=== PATIENT | male | born 1950 | race Caucasian/White ===

== ENCOUNTER 2020-04-08 09:55 | Emergency (ER) | payer MEDICARE ==
[2020-04-08] MEDS ORDERED: EXCEDRIN EXTRA1 EACH PO (10:22)
[2020-04-08 10:55] LABS: BASO # 0.1 10*3/uL (0.0-0.1); BASO % 0.6 % (0.0-1.0); EOS # 0.3 10*3/uL (0.0-0.4); HEMATOCRIT 57.4 % (42.0-52.0); LYMPH # 1.8 10*3/uL (1.3-4.4); LYMPH % 12.7 % (27.0-41.0); MEAN CELL VOLUME 93.3 fl (80.0-94.0); MEAN CORPUSCULAR HGB 29.9 pg (27.0-31.0); MEAN CORPUSCULAR HGB CONC 32.1 g/dl (33.0-37.0); MEAN PLATELET VOLUME 10.4 fl (9.6-12.3); MONO % 6.7 % (3.0-9.0); NEUT # 11.1 10*3/uL (2.3-7.9); NEUT % 77.6 % (47.0-73.0); PLATELET COUNT AUTOMATED 255 10*3/uL (130-400); RED BLOOD COUNT 6.15 10*6/uL (4.50-5.90); RED CELL DISTRI WIDTH 13.6 % (0-14.5); WHITE BLOOD COUNT 14.4 10*3/uL (4.8-10.8)
[2020-04-08 11:07] LABS: ALBUMIN 4.2 gm/dl (3.1-4.5); CREATININE 1.54 mg/dL (0.70-1.30); POTASSIUM 4.5 mmol/L (3.5-5.1); TOTAL PROTEIN 7.7 gm/dL (6.4-8.2)
== END 2020-04-08 11:30 | disposition home or self-care (01) ==
LOC: ED 09:55
PROVIDERS: Student in an Organized Health Care Education/Training Program
DX: R25.2 Cramp and spasm (principal); I73.9 Peripheral vascular disease, unspecified; M79.605 Pain in left leg; F17.200 Nicotine dependence, unspecified, uncomplicated; Z79.82 Long term (current) use of aspirin

== ENCOUNTER → 2022-05-07 | Outpatient (CLI) | payer MEDICARE ==
[~2022-05-07] MED LIST: AMLODIPINE BESY10 MG PO; AMLODIPINE BESYL5 MG PO; ASPIRIN CHEWABL81 MG PO; CARVEDILOL6.25 MG PO; EXCEDRIN EXTRA1 EACH PO; VITAMIN D350 MC2 PO
== END | disposition home or self-care (01) ==
LOC: RAD 10:05
PROVIDERS: ATTEND Internal Medicine
DX: K56.41 Fecal impaction (principal); R14.0 Abdominal distension (gaseous)

== ENCOUNTER → 2022-09-04 | Outpatient (CLI) | payer MEDICARE | END | disposition home or self-care (01) | LOC: RESCLI 03:21 | PROVIDERS: ATTEND Internal Medicine | DX: K59.00 Constipation, unspecified (principal); R14.0 Abdominal distension (gaseous); E78.5 Hyperlipidemia, unspecified; E55.9 Vitamin D deficiency, unspecified; I10 Essential (primary) hypertension; R06.02 Shortness of breath; Z87.891 Personal history of nicotine dependence; Z98.890 Other specified postprocedural states; Z79.82 Long term (current) use of aspirin; Z79.899 Other long term (current) drug therapy ==

== ENCOUNTER 2022-09-23 08:20 | Emergency (ER) | payer MEDICARE ==
[~2022-09-23] VITALS: Ht 165.1 cm; Wt 63.5 kg
[2022-09-23] MEDS ORDERED: PROVENTIL HFA6.7 GM INH (08:35)
[2022-09-23] MEDS ORDERED: ATORVASTATIN CA20 M1 PO (08:35)
[2022-09-23] MEDS ORDERED: PANTOPRAZOLE SO40 MG PO (08:36)
[2022-09-23] MEDS ORDERED: LISINOPRIL10 M1 PO (08:36)
[2022-09-23 08:52] LABS: BASO # 0.1 10*3/uL (0.0-0.1); BASO % 0.7 % (0.0-1.0); EOS # 0.5 10*3/uL (0.0-0.4); HEMATOCRIT 44.6 % (42.0-52.0); LYMPH # 1.4 10*3/uL (1.3-4.4); LYMPH % 11.4 % (27.0-41.0); MEAN CELL VOLUME 93.1 fl (80.0-94.0); MEAN CORPUSCULAR HGB 30.7 pg (27.0-31.0); MONO # 0.9 10*3/uL (0.1-1.0); MONO % 7.1 % (3.0-9.0); NEUT # 9.3 10*3/uL (2.3-7.9); NEUT % 76.5 % (47.0-73.0); PLATELET COUNT AUTOMATED 236 10*3/uL (130-400); RED BLOOD COUNT 4.79 10*6/uL (4.50-5.90); RED CELL DISTRI WIDTH 12.9 % (0-14.5); WHITE BLOOD COUNT 12.2 10*3/uL (4.8-10.8)
[2022-09-23 09:14] LABS: POTASSIUM 4.5 mmol/L (3.4-5.1); TOTAL PROTEIN 7.6 gm/dL (6.0-8.0)
[2022-09-23] MEDS ORDERED: PREDNISONE20 M1 PO (09:35)
[2022-09-23] MEDS ORDERED: ZITHROMAX250 MG PO (09:35)
== END 2022-09-23 09:43 | disposition home or self-care (01) ==
LOC: ED 08:20
PROVIDERS: Emergency Medicine
DX: J45.901 Unspecified asthma with (acute) exacerbation (principal); R07.89 Other chest pain; M54.9 Dorsalgia, unspecified; Z79.82 Long term (current) use of aspirin; Z79.899 Other long term (current) drug therapy

== ENCOUNTER → 2022-10-03 | Day surgery (SDC) | payer MEDICARE ==
[~2022-10-03] VITALS: Ht 165.1 cm; Wt 63.5 kg
[~2022-10-03] MED LIST changes: +ATORVASTATIN CA20 M1 PO; +LISINOPRIL10 M1 PO; +PANTOPRAZOLE SO40 MG PO; +PREDNISONE20 M1 PO; +PROVENTIL HFA6.7 GM INH; +ZITHROMAX250 MG PO
[2022-10-03 08:24] VITALS: BP 110/67
[2022-10-03 10:00] VITALS: BP 120/68
[2022-10-03 10:15] VITALS: BP 125/78
[2022-10-03 10:27] VITALS: BP 118/75
== END ==
LOC: SDC 09-30 12:30
PROVIDERS: ATTEND Surgery
DX: R19.5 Other fecal abnormalities (principal); C18.2 Malignant neoplasm of ascending colon; D36.9 Benign neoplasm, unspecified site; K59.09 Other constipation; I10 Essential (primary) hypertension; K21.9 Gastro-esophageal reflux disease without esophagitis; E78.00 Pure hypercholesterolemia, unspecified; J45.909 Unspecified asthma, uncomplicated; G43.909 Migraine, unspecified, not intractable, without status migrainosus; R41.3 Other amnesia; Z87.891 Personal history of nicotine dependence; Z79.899 Other long term (current) drug therapy; Z98.890 Other specified postprocedural states

== ENCOUNTER → 2023-09-05 | Outpatient (CLI) | payer MEDICARE | END | disposition home or self-care (01) | LOC: RESCLI 01:48 | PROVIDERS: ATTEND Internal Medicine | DX: E55.9 Vitamin D deficiency, unspecified (principal); I10 Essential (primary) hypertension; R41.3 Other amnesia; F17.210 Nicotine dependence, cigarettes, uncomplicated; K59.00 Constipation, unspecified; K21.9 Gastro-esophageal reflux disease without esophagitis; J44.9 Chronic obstructive pulmonary disease, unspecified; Z79.899 Other long term (current) drug therapy; Z82.49 Family history of ischemic heart disease and other diseases of the circulatory system; Z98.890 Other specified postprocedural states; Z88.8 Allergy status to other drugs, medicaments and biological substances ==

== ENCOUNTER 2024-07-07 09:02 | Emergency (ER) | payer MEDICARE ==
[~2024-07-07] VITALS: Ht 165.1 cm; Wt 65.8 kg
[2024-07-07] MEDS ORDERED: SYMB160 INH (09:17)
[2024-07-07] MEDS ORDERED: VITAMIN D325 MCG PO (09:18)
[2024-07-07] MEDS ORDERED: VENT7GM INH (09:20)
[2024-07-07] MEDS ORDERED: ASPIRIN 325 MG TAB PO ONE (09:45)
[2024-07-07] MEDS ORDERED: ATORVASTATIN CALCIUM 80 MG TAB PO ONE (09:45)
[2024-07-07] MEDS ORDERED: SODIUM CHLORIDE 0.9% 100 ML BAG IV ONE (09:50)
[2024-07-07] MEDS ORDERED: IOHEXOL 350 MG/ML 100 ML VIAL IV ONE ×2 (09:50→10:06)
[2024-07-07 09:55] LABS: BASO # 0.1 10*3/uL (0.0-0.1); EOS # 0.2 10*3/uL (0.0-0.4); EOS % 2.6 % (1.0-4.0); HEMATOCRIT 48.9 % (42.0-52.0); MEAN CELL VOLUME 93.7 fl (80.0-94.0); MEAN CORPUSCULAR HGB 30.5 pg (27.0-31.0); MEAN CORPUSCULAR HGB CONC 32.5 g/dl (33.0-37.0); MEAN PLATELET VOLUME 9.5 fl (9.6-12.3); MONO # 0.6 10*3/uL (0.1-1.0); MONO % 8.9 % (3.0-9.0); NEUT # 3.8 10*3/uL (2.3-7.9); PLATELET COUNT AUTOMATED 290 10*3/uL (130-400); RED BLOOD COUNT 5.22 10*6/uL (4.50-5.90); RED CELL DISTRI WIDTH 13.4 % (0-14.5); WHITE BLOOD COUNT 6.2 10*3/uL (4.8-10.8)
[2024-07-07 10:06] LABS: ACT PARTIAL THROMBO TIME 27.6 SECONDS (20.0-32.1)
[2024-07-07] MEDS ORDERED: SODIUM CHLORIDE 0.9% 100 ML IV ONE (10:06)
[2024-07-07] MEDS ORDERED: Clopidogrel Hydrogen Sulfate 75 MG TAB PO ONE (11:45)
[2024-07-07] MEDS ORDERED: PLAVIX75 M1 PO (12:04)
[2024-07-07] MEDS ORDERED: ATORVASTATIN CA20 M1 PO (12:04)
== END 2024-07-07 12:30 | disposition left against medical advice (07) ==
LOC: ED 09:02
PROVIDERS: Emergency Medicine
DX: G45.9 Transient cerebral ischemic attack, unspecified (principal); Z79.82 Long term (current) use of aspirin; Z79.899 Other long term (current) drug therapy

== ENCOUNTER → 2024-07-19 | Outpatient (CLI) | payer MEDICARE ==
[~2024-07-19] MED LIST changes: +PLAVIX75 M1 PO; +SYMB160 INH; +VENT7GM INH; +VITAMIN D325 MCG PO
== END | disposition home or self-care (01) ==
LOC: MRI 09:00
PROVIDERS: ATTEND Internal Medicine
DX: G45.9 Transient cerebral ischemic attack, unspecified (principal)